=== PATIENT | male | born 1995 | race African-American/Black ===

== ENCOUNTER 2021-07-05 04:44 | Emergency (ER) | payer BC ==
[~2021-07-05] VITALS: Ht 180.3 cm; Wt 73.0 kg
[2021-07-05] MEDS ORDERED: ONDANSETRON 4MG ODT PO STA (05:12)
[2021-07-05] MEDS ORDERED: KETOROLAC 30MG/ML VIAL IV STA (05:12)
[2021-07-05] MEDS ORDERED: SODIUM CHLORIDE 0.9% 1,000 ML IV ONE (05:15)
[2021-07-05 05:39] LABS: BASOPHILS % 0.4 % (0.0-2.0); EOSINOPHILS % 0.5 % (0.0-5.0); HEMOGLOBIN. 13.7 g/dL (14.0-18.0); LYMPHOCYTES % 12.7 % (20.0-50.0); MEAN CORPUSCULAR HEMOGLOBIN 28.6 pg (28.0-32.0); MEAN CORPUSCULAR VOLUME 85.8 fL (80.0-94.0); MEAN PLATELET VOLUME 8.2 fl (7.4-10.4); MONOCYTES % 6.9 % (2.0-8.0); NEUTROPHILS % 79.5 % (40.0-76.0); PLATELET 273 x1000/uL (130-400); RED BLOOD CELL COUNT 4.78 mill/uL (4.7-6.1); RED CELL DISTRIBUTION WIDTH 14.2 % (11.6-14.6)
[2021-07-05 05:46] LABS: CHLORIDE 105 mEq/L (98-107)
[2021-07-05 05:51] LABS: ETHANOL BLOOD < 10 mg/dL
[2021-07-05 05:53] LABS: INR 1.1; PROTHROMBIN TIME 11.4 sec (9.6-11.0)
[2021-07-05] MEDS ORDERED: MORPHINE SULFATE 4 MG/ML CPJ (NOT FOR IM USE) IV ONE (06:15)
[2021-07-05] MEDS ORDERED: MORPHINE SULFATE 2 MG/ML CPJ (NOT FOR IM USE) IV SCH (06:30)
[2021-07-05] MEDS ORDERED: TAMSULOSIN HCL 0.4MG SR CAPSULE PO NR (08:00)
[2021-07-05 09:53] LABS: CLARITY URINE CLEAR (CLEAR); COLOR URINE YELLOW (YELLOW); KETONES URINE 1+ (NEGATIVE); LEUKOCYTE ESTERASE URINE 1+ (NEGATIVE); NITRITE URINE NEGATIVE (NEGATIVE); OCCULT BLOOD URINE 3+ (NEGATIVE); PH URINE 5.5 (4.5-8.0); PROTEIN URINE TRACE (NEGATIVE); UROBILINOGEN URINE 0.2 E.U./dL (0.2-1.0)
[2021-07-05 10:09] LABS: *AMPHETAMINES SCREEN URINE NEGATIVE (NEGATIVE); *BARBITURATES SCREEN URINE NEGATIVE (NEGATIVE); *BENZODIAZEPINES SCREEN URINE NEGATIVE (NEGATIVE); *COCAINE SCREEN URINE NEGATIVE (NEGATIVE); CANNABINOID URINE SCREEN PRESUMTIVE POSITIVE (NEGATIVE); PHENCYCLIDINE URINE SCREEN NEGATIVE (NEGATIVE)
[2021-07-05 10:10] LABS: METHADONE URINE SCREEN NEGATIVE (NEGATIVE); OPIATES URINE SCREEN PRESUMTIVE POSITIVE (NEGATIVE)
[2021-07-05] MEDS ORDERED: IBUP-2029 MT (10:26)
[2021-07-05] MEDS ORDERED: TAMS-11 MT (10:26)
[2021-07-05] MEDS ORDERED: CEPH500C2 MT (10:26)
[2021-07-05] MEDS ORDERED: CEPHALEXIN 250MG CAPSULE PO ONE (10:30)
[2021-07-05] MEDS ORDERED: HYDR-4001 MT (11:07)
[2021-07-05 11:13] VITALS: BP 120/69
== END 2021-07-05 11:15 | disposition home or self-care (01) ==
LOC: ER 05:11
DX: N13.2 Hydronephrosis with renal and ureteral calculous obstruction (principal); Z98.890 Other specified postprocedural states
CPT/HCPCS: 36415; 74176; 76770; 80053; 80305; 80320; 81003; 83690; 85025; 85610; 96361; 96374; 96375; 99285; J1885; J2270; J7030; Q0162; G0480